=== PATIENT | female | born 1935 | race Caucasian/White ===

== ENCOUNTER 2023-08-14 13:00 | Outpatient (RCR) | payer MEDICARE, BC, SELFPAY | END 2023-09-14 14:27 | disposition home or self-care (01) | PROVIDERS: PCP Family Medicine; Visit Provider Family Medicine | DX: M54.9 Dorsalgia, unspecified (principal); R26.89 Other abnormalities of gait and mobility; R29.3 Abnormal posture; Z51.89 Encounter for other specified aftercare; R53.1 Weakness | CPT/HCPCS: 97110; 97112; 97162; 97530 ==

== ENCOUNTER 2025-02-24 16:09 | Emergency (ER) | payer MEDICARE, BC, SELFPAY ==
--- OUTSIDE RECORDS SUMMARY | 2025-02-24 16:11 | XMS_ITS | Clinical Summary ---
Author Organization [employer] [facility] Address [address] [place] [address] Care Team Providers Care Child Care Worker Name Role Phone Marilyn Teixeira MD Primary Care Prov ider Pascual Saul MD Unavailable [phone] Allergies Active Allergy Reactions Criticality Noted Date Comments Ciprofloxacin Rash,Itching 04/14/2014 Lip tingling as well Cephalexin Hives 03/29/2007 Lisinopril Cough 08/03/2016 Penicillins Hives Given Augmentin 04/2021 and developed rash. Had been given Augmentin in the past without rash Medications VITAMIN D 1,000 UNIT TAB Take 1,000 units by mouth once daily. 0 12/24/19 08 Active sennosides (Senna) 8.6 mg tablet Take 8.6 mg by mouth once daily if needed for Constipation. Active artificial tears, peg 400-propylene glycol, (Systane) 0.4-0.3 % ophthalmic dropperette Place 1-2 Drops into both eyes each time if needed for Dry Eyes. Active acetaminophen (TylenoL) 325 mg tablet Take 325-650 mg by mouth every 6 hours if needed for Headache. Max acetaminophen dose: 4000mg in 24 hrs. Active traMADoL (ULTRAM) 50 mg tabletIndications :Other chronic pain May take up to Once daily if needed for chronic severe pain. HOLD until patient calls 20 Tablet 1 06/26/20 23 Active cetirizine (ZyrTEC) 10 mg tablet Take 10 mg by mouth once daily if needed for Allergy Symptoms or Rhinitis. Active famotidine (PEPCID) 20 mg tablet Take 20 mg by mouth once daily if needed for Heartburn or GI Upset. Active predniSONE (DELTASONE) 5 mg tablet Take 5 mg by mouth once daily with a meal. 03/27/20 24 Active pen needle 32 gauge x 5/32 (disposable insulin pen needle)Indication s:Controlled type 2 diabetes mellitus without complication, with long-term current use of insulin (HC) For administering insulin at home. Remove the 2 covers on the insulin pen needle before administering insulin dose. 100 Each 4 11:10 AM CDT 05/26/20 24 Active blood-glucose meterIndications: Controlled type 2 diabetes mellitus without complication, with long-term current use of insulin (HC) Dispense meter covered by [facility] insurance. 1 Each 4 2:51 PM CDT 05/26/20 24 Active pen needle (BD Lisa 2nd Gen Pen Needle) 32 gauge x 5/32 (disposable insulin pen needle)Indication s:Uncontrolled type 2 diabetes mellitus with hyperglycemia (HC) Remove the 2 covers on the pen needle before administering medication dose. 100 Each 07/01/20 24 Active blood sugar diagnostic stripIndications: Controlled type 2 diabetes mellitus without complication, with long-term current use of insulin (HC) Test 3 times per day as needed to check cgm or for cgm back up, Reason: High A1C. Contour next strips 100 Each 07/01/20 24 Active apixaban (ELIQUIS) 5 mg tabletIndications :PAF (paroxysmal atrial fibrillation) (HC) Take 1 Tablet (5 mg) by mouth two times daily. 180 Tablet 3 07/01/20 24 Active atorvastatin (LIPITOR) 20 mg tabletIndications :Medicare annual wellness visit, subsequent Take 1 Tablet (20 mg) by mouth once daily. 90 Tablet 4 07/01/20 24 Active docusate (COLACE) 100 mg capsuleIndication s:Chronic constipation Take 1 Capsule (100 mg) by mouth 2 times daily if needed for Constipation. 180 Capsule 07/01/20 24 Active empagliflozin (JARDIANCE) 25 mg tabletIndications :Controlled type 2 diabetes mellitus without complication, with long-term current use of insulin (HC) Take 1 Tablet (25 mg) by mouth once daily. 90 Tablet 3 07/01/20 24 Active furosemide (LASIX) 20 mg tabletIndications :PAF (paroxysmal atrial fibrillation) (HC),Acute on chronic diastolic congestive heart failure (HC),Weight gain Take 0.5 Tablets (10 mg) by mouth once daily in the morning. 90 Tablet 3 07/01/20 24 Active lancetsIndication s:Controlled type 2 diabetes mellitus without complication, with long-term current use of insulin (HC) Test 3 times per day, Reason: High A1C. Use to check cgm or malfunction cgm Wait to fill until patient calls 100 Each 07/01/20 24 Active metoprolol succinate (Toprol XL) 25 mg Sustained-Release tabletIndications :PAF (paroxysmal atrial fibrillation) (HC),Acute on chronic diastolic congestive heart failure (HC),ASHD (arteriosclerotic heart disease),HTN (hypertension) Take 1 Tablet (25 mg) by mouth two times daily. 180 Tablet 3 07/01/20 24 Active nitroglycerin (NITROSTAT) 0.4 mg sublingual tabletIndications :Atherosclerosis of coronary artery of [place] heart without angina pectoris, unspecified vessel or lesion type Place 1 Tablet (0.4 mg) under the tongue every 5 minutes if needed for Chest Pain. HOLD until patient calls 25 Tablet 07/01/20 24 Active fluticasone (50 mcg per actuation) nasal solution (FLONASE)Indicati ons:Nasal congestion Inhale 1 [place] into affected nostril(s) once daily if needed for Rhinitis. Wait to fill until patient calls 16 g 2 07/29/20 Active Lantus Solostar U-100 Insulin 100 unit/mL (3 mL) penIndications:Un controlled type 2 diabetes mellitus with hyperglycemia (HC) Inject 6 units subcutaneous before bedtime. Product desired: LANTUS SOLOSTAR 15 mL 5 08/04/20 Active Active Problems Problem Noted Date Diagnosed Date Acute on chronic diastolic (congestive) heart fa ilure 11/12/2024 Type 2 diabetes mellitus wit h stage 3b chronic kidney disease, without long-term current use of insulin 11/12/2024 PAF (paroxysmal atrial fibrillation) 11/12/2024 Inflammatory arthropathy 07/01/2024 CKD (chronic kidney disease), stage III 05/22/20 DM II (diabetes mellitus, type II), controlled 0 05/22/2024 Chronic diastolic CHF (congestive heart failure) 08/08/2023 CHF (congestive heart failure) 05/06/2021 Shortness of breath 05/06/2021 Syncope 03/26/2021 Atrial fibrillation 03/24/2021 Preventative health care 05/20/2019 Overview (05/20/2019): Living well: filled out all the paperwork but her daughter did not want them to file it. States that she will speak for them. They have reviewed the paperwork with her and she knows their wishes. At this point she would like to be resuscitated if her heart should stop or need intubation. But does not want to prolong life if it is not a quality life. Signed electronically by Ramya Teixeira MD ......... 2:03 PM 05/20/2019 Gallstones 05/17/2016 Osteoporosis 05/03/2015 Overview (05/26/2019): Osteopenia: No significant change noted on DEXA 04/2019 repeat 3-5 yrs continue on Fosamax Signed electronically by Ramya Teixeira MD ......... 7:55 PM 05/26/2019 Diverticulosis 04/08/2014 Overview (04/08/2014): Sigmoid diverticuli on colonoscopy of 05/2013 Adenomatous colon polyp 06/09/2013 Overview (10/01/2023): Colonoscopy 05/2013 polyp , no follow up needed given age Flexible sigmoidoscopy 09/2023 2-TA, consider full colonoscopy Routine adult health maintenance 05/23/2013 Overview (05/23/2013): Colonoscopy 05/2013 diverticulosis no follow up Unspecified hearing loss 04/10/2011 Overview (04/10/2011): Hearing aids Coronary atherosclerosis of unspecified type of vessel, [place] or graft Overview (03/29/2007): PTCA 92 Unspecified essential hypertension Other and unspecified hyperlipidemia Esophageal reflux Rheumatoid arthritis(714.0) Osteoarthrosis, unspecified whether generalized or localized, unspecified site Herpetic gingivostomatitis Resolved Problems Problem Noted Date Diagnosed Date Resolved Date Acute cystitis 05/22/2024 07/01/2024 Hypoxia 05/14/2021 07/01/2024 SHELBY (acute kidney injury) 05/14/2021 Drug-induced skin rash 05/09/202107/01 Acute on chronic diastolic heart failure 05/07/2021 05/22/2024 Atrial fibrillation with RVR 05/06/2021 05/22/2024 Acute exacerbation of CHF (c ongestive heart failure) 03/24/2021 05/22/2024 Severe obesity (BMI 35.0-39. 9) with comorbidity 10/09/2017 06/14/2020 Renal insufficiency 05/04/2016 07/01/20 Medicare annual wellness visit, subsequent 05/03/2015 10/26/2016 Osteopenia 04/21/2013 06/22/2022 Overview (05/26/2019): No significant change noted on 04/2019 repeat 3-5 yrs SOB (shortness of breath) on exertion 10/09/2011 04/04/2021 Encounters Date Type Department Care Team Description 02/24/2025 Nurse Triage [facility] [address] [place] [place] [address] Marilyn Teixeira MD High Blood Pressure 12/02/2024 1:15 PM [employer] Office Visit [facility] [address] [place] [address] Marilyn Teixeira MD Diabetes 12/02/2024 Travel from Last 3 Months Immunizations Immunization Administration Dates Next Due AMB INFLUENZA IIV3 (AGE 65+ YRS) PF (Flu Clinic Only) 07/23/2018 AMB Influenza, IIV3 (Age >=3 years)(Flu Clinic Only) 08/13/2013,08/30/2010,08/12/2008 Amb Influenza, Inact (High-d ose) (Flu Clinic Only) 07/23/2015 Amb Influenza, Inactivated A IIV4 (Age 65+ Years) Preserv Free 07/23/2020 COVID-19 vaccine (Sidestage 30mcg/0.3mL) PF, MDV 09/07/2021,01/06/2021,12/16/2020 Influenza A (H1N1), Inactiva veronica (Age >=3 Years) 11/02/2009 Influenza, High-dose Inactivated 07/30/2024,07/22,07/07/2014 Influenza, IIV3 (Age >=3 years) 08/28/20 12,08/01/2011,07/02/2009,09/16 Influenza, Inactivated AIIV4 (Age 65+ Years) Preserv Free 07/10/2023,06/22/2022,09/07/2021 Influenza, Inactivated IIV3 (Age 65+ Years) Preserv Free 08/26/2019 Pneumococcal Poly,23-Valent (Pneumovax) 08/26/2019,08/24/2000 Pneumococcal conj 13-Valent (Prevnar 13) 12/20/2015 RSV, Recombinant ADJ Reconst ituted (Arexvy 120MCG/0.5mL) 08/29/2023 Td (Age >=7 Years) 02/15/1999 Td, Preservative Free (age >= 7 Years) 9 Tdap 04/16/2012 Tdap, Unspecified 10/03/2017 Zoster (Shingrix-RZV, recombinant) 06/27/2023, Zoster (Zostavax-ZVL, live) 06/12/2012 Family History Medical History Relation Name Comments Heart Disease Father Hypertension Father Other Father cancer of face, then lung Heart Disease Mother Mi at age 57 a nd 64 Cancer-colon Sister 1 Cancer-breast Sister 2 Other Sister 2 aneurism Other Sister 3 down's synd Cancer-ovarian No Family History Relation Name Status Comments Brother Alive Father (Age 77) Mother (Age 64) [place] Sister 1 Alive Sister 2 Sister 3 Sister 4 Alive Social History Tobacco Use Types Packs/Day Years Used Date Smoking Tobacco: Never Passive Smoke Exposure: Never Smokeless Tobacco: Never Tobacco Cessation:Counseling Given: Not Answered Alcohol Use Standard Drinks/Week Comments No 0 (1 standard drink = 0.6 oz pur e alcohol) PHQ-2 Answer Date Recorded PHQ-2 TOTAL SCORE 0 07/01/2024 Social Connections Answer Date Recorded Do you often feel lonely or isolated from those around you? 0 05/22/2024 Financial Resource Strain Answer Date R ecorded Difficulty of Paying Living Expenses 3 06/26/2023 Difficulty of Paying Living Expenses Not on file 06/26/2023 Food Insecurity Answer Date Recorded Do you worry your food will run out before you are able to buy more? 1 05/22/2024 Transportation Needs Answer Date Record ed Does lack of transportation keep you from medica l appointments? 1 05/22/2024 Does lack of transportation keep you from work, meetings or getting things that you need? 1 05/22/2024 Housing Stability Answer Date Recorded What is your housing situation today? 1 05/22/2024 Interpersonal Safety Answer Date Record ed Are you being hit, kicked, p ushed or yelled at (see row info)? No 05/22/2024 Interpersonal Safety Abuse 12 - 18 Not on file 05/22/2024 Interpersonal Safety Ambulatory Vulnerability No t on file 05/22/2024 Utilities Answer Date Recorded Do you have trouble paying f or utilities (for example, heat, electricity, water, phone)? 1 05/22/2024 Comments No Sex and Gender Information Value Date Recorded Sex Assigned at Not on file Legal Sex Female 6:09 AM [employer] Gender Identity Not on file Sexual Orientation Not on file Obstetrics History Last Filed Vital Signs Vital Sign Reading Time Taken Comments Blood Pressure 141/84 12/02/2024 12:54 PM [employer] Pulse 87 12/02/2024 12:54 PM [employer] Temperature 36.6 C (97.8 F) 08/24/2024 11:25 AM [employer] Respiratory Rate 18 08/24/2024 11:25 AM [employer]ER Oxygen Saturation 97% 12/02/2024 12:54 PM [employer]ER Inhaled Oxygen Concentration - - Weight 68.5 kg (151 lb) 12/02/2024 12:54 PM [employer] Height 157.5 cm (5' 2) 07/23/2024 9:53 AM CDT Body Mass Index 27.62 07/23/2024 9:53 AM CDT Plan of Treatment Upcoming Encounters Date Type Department Care Team (Late st Contact Info) Description 03/03/2025 2:55 PM CDT Office Visit [facility] [address] [place] [address] Marilyn Teixeira MD [address] [facility] [address] 06/02/2025 2:30 PM CDT Cardiac Device Check [facility] [address] [place] [phone] Health Maintenance Due Date Last Done Comments COVID-19 vaccine series ( season) 2025 07/30/2024, 08/29/2023, 07/27/2022, Additional history exists Medicare Wellness for age 65+ 07/02/2025, 06/26/2023 (Verified in Care Everywhere or Patient Record), 06/22/2022, Additional history exists Depression screening for age 12+ 07/03/2025 07/03/2024, 07/01/2024, 06/26/2023, Additional history exists BMI (ht and wt on same day) for age 18+ 07/23/2025 07/23/2024, 07/01/2024, 07/04/2023, Additional history exists Tetanus booster 10/03/2027 10/03/2017, 03/23, 03/31/2009, Additional history exists Tdap Completed 10/03/2017, 04/16/2012 DEXA/DXA scan for age 65+ Completed 2018, 05/07/2017, 05/04/2015, Additional history exists Pneumococcal series for age 50+ Completed 08/26/2019, 12/20/2015, 08/24/2000, Additional history exists Zoster (shingles) series for age 50+ Completed 06/27/2023, 04/10/2023, 06/12/2012 RSV vaccine for adults or Completed 08/29/2023 Influenza Vaccine Completed 07/30/2024, , 06/22/2022, Additional history exists Procedures Procedure Name Priority Date/Time Associated Diagnosis Comments HEMOGLOBIN A1C MONITORING (POCT) Routine 12/02/2024 12:03 PM [employer] Controlled type 2 diabetes mellitus without complication, with long-term current use of insulin (HC) XR DXA BONE DENSITY 2 SITES AXIAL Routine 05/20/2019 1:53 PM CDT Osteoporosis, unspecified osteoporosis type, unspecified pathological fracture presence from Last 3 Months or Most Recently Relevant to Health Maintenance Results * (ABNORMAL) HEMOGLOBIN A1C MONITORING (POCT) (12/02/2024 12:03 PM [employer]) POC HEMOGLOBIN A1C 7.5(H) <6.0 % OF TOTAL HGB [facility] Comment: Any point of care results exhibiting inconsistency with the patient's clinical status should be repeated using a different testing method. Blood BLOOD SPECIMEN / Unknown 12/02/2024 12:03 PM [employer] 12/02/2024 12:03 PM [employer] Marilyn Teixeira MD CHEMISTRY Fi nal Result [facility] [address] [place] [address], [facility] [address] [place] [address] * (ABNORMAL) XR DXA BONE DENSITY 2 SITES AXIAL (05/20/2019 1:53 PM CDT) Anatomical Region Laterality Modality Spine, HIPS, HIPL, HIPR Other Narrative 05/26/2019 1:19 PM CDT Please see scanned document for results of this study. Marilyn Teixeira MD DEXA Fi nal Result from Last 3 Months or Most Recently Relevant to Health Maintenance Insurance [id number] [place] [address] MEDICARE [place] ONLY MEDICARE PART B HB ONLY [facility] MEDICARE PART A HB ONLY [facility] MEDICARE PPS Advance Directives * Full Code (Latest Code Status on File) Date Activated Date Inactivated Comments 05/22/2024 6:35 AM 05/26/2024 8:07 PM Question Answer Comments Code Status Discussion: Reviewed Preferences * Full Code Date Activated Date Inactivated Comments 05/06/2021 7:04 PM 05/15/2021 4:36 PM Question Answer Comments Code Status Discussion: Discussed * Full Code Date Activated Date Inactivated Comments 04/28/2021 11:01 AM 04/28/2021 6:22 PM Question Answer Comments Code Status Discussion: Not Discussed * Full Code Date Activated Date Inactivated Comments 03/24/2021 4:12 PM 03/29/2021 4:59 PM Question Answer Comments Code Status Discussion: Discussed Care Teams Child Care Worker Relationship Specialty Start Date End Date Marilyn Teixeira MD PCP - General 06/22/09 Pascual Saul MD [address] [address] [place] [address] Cardiology Cardiovascular Disease 10/26/16
--- OUTSIDE RECORDS SUMMARY | 2025-02-24 16:11 | XMS_ITS | Continuity of Care Document ---
Author Organization [facility] Address [address] [place] [address] Phone Care Team Providers Care National Accounts Sales Name Role Phone Nicolas Martinez DO Unavailable Unavailable Allergies, Adverse Reactions, Alerts Substance Reaction Status Criticality ciprofloxacin Active No Information Penicillins Active No Information Medications Medication Instructions Dosage Effective Dates (start - stop) Status Comments PREDNISONE 5 MG TABLET TAKE 1 TABLET BY MOUTH EVERY DAY - Active Flonase Allergy Relief 50 mcg/actuation nasal spray,suspension inhale 2 spray by intranasal route every day in each nostril as needed 100 MCG - Active Colace 100 mg capsule take 1 capsule by oral route every day at bedtime as needed as needed 100 MG - Active Lantus Solostar U-100 Insulin 100 unit/mL (3 mL) subcutaneous pen inject by subcutaneous route as per insulin protocol 0.00 - Active Jardiance 25 mg tablet take 1 tablet by oral route every day in the morning 25 MG - Active metoprolol tartrate 25 mg tablet take 1 tablet by oral route 2 times every day 25 MG - Active Eliquis 5 mg tablet take 1 tablet by oral route 2 times every day 5 MG - Active Lasix 20 mg tablet take 1 tablet by oral route every day 20 MG - Active Zyrtec 10 mg capsule take 1 Capsule by Oral route every day 1 Capsule - Active LIPITOR (unknown strength) take 1 tablet by oral route every day Not Available - Active Nitrostat 0.[address] 1 tablet (0.4MG) by sublingual route at the 1st sign of attack; may repeat every 5 min until relief; if pain persists after 3 tablets in 15 min, prompt medical attention is recommended 0.4 MG - Active PREDNISONE 5 MG TABLET TAKE 1 TABLET BY MOUTH EVERY DAY - No Longer Active Procedures Procedure Date Office/Outpatient Visit, Est Complex e/m visit add on Office/Outpatient Visit, Est Complex e/m visit add on Routine Venipuncture Specimen Handling Assay Of Ck (Cpk) Office/Outpatient Visit, Est Routine Venipuncture Rbc Sed Rate, Automated Assay Of Serum Albumin Assay Of Creatinine Transferase (Ast) (Sgot) Alanine Amino (Alt) (Sgpt) CReactive Protein CCP Antibody Rheumatoid Factor, IGM Rheumatoid Factor, IGG, IGA Complete Cbc WAuto Diff Wbc Office/Outpatient Visit, Est Office/Outpatient Visit, Est Office/Outpatient Visit, Est Drain/Inject, Joint/Bursa, Major 2019 Betamethasone Acet And Sod Phosp 2019 Office/Outpatient Visit, Est Office/Outpatient Visit, Est Office/Outpatient Visit, Est Office/Outpatient Visit, Est Office/Outpatient Visit, Est Office/Outpatient Visit, Est Office/Outpatient Visit, Est Office/Outpatient Visit, Est Routine Venipuncture CReactive Protein Complete Cbc WAuto Diff Wbc Rbc Sed Rate, Nonautomated Office/Outpatient Visit, Est Advance Directives Directive Yes / No Effective Date File Name No Information Encounters Encounter Description Practice Location Reason(s) For Visit Diagnoses Date Provider Providers Copied on Encounter [facility] , [address], [place], [address], [place] tel:[phone] [facility] No Information 5 Juan Valenzuela. [facility] [address], [place], [address], [place]. tel:[phone] [facility] , [address], [place], [address], [place] tel:[phone] [facility] No Information 5 Juan Valenzuela. [facility] [address], [place], [address], [place]. tel:[phone] Office/Outpa tient Visit, Est [facility] , [address], [place], [address], [place] tel:[phone] [facility] , Inflammatory polyarthropa thyOther oysterman (current) drug therapyPrima ry generalized (osteo)arthr itisEdemaCos tochondritis 4 Juan Valenzuela. [facility] [address], [place], [address], [place]. tel:[phone] Referring Provider: Nicolas Crowley, [facility] [address], [place], [address]. tel:[phone] Office/Outpa tient Visit, Est [facility] , [address], [place], [address], [place] tel:[phone] [facility] , Inflammatory Polyarthropa thy (chief complaint)Mo nitor Chronic High Risk Meds (chief complaint) Inflammatory polyarthropa thyPrimary generalized (osteo)arthr itisOther oysterman (current) drug therapy 4 Juan Valenzuela. [facility] [address], [place], [address], [place]. tel:[phone] Referring Provider: Nicolas Crowley, [facility] [address], [place], [address]. tel:[phone] Office/Outpa tient Visit, Est [facility] , [address], [place], [address], [place] tel:[phone] [facility] , Inflammatory Polyarthropa thy (chief complaint)Mo nitor Chronic High Risk Meds (chief complaint) Inflammatory polyarthropa thyPrimary generalized (osteo)arthr itisOther oysterman (current) drug therapy 4 Juan Valenzuela. [facility] [address], [place], [address], [place]. tel:[phone] Referring Provider: Nicolas Crowley, [facility] [address], [place], [address]. tel:[phone] Office/Outpa tient Visit, Est [facility] , [address], [place], [address], [place] tel:[phone] [facility] , Inflammatory Polyarthropa thy (chief complaint)Mo nitor Chronic High Risk Meds (chief complaint) Inflammatory polyarthropa thyPrimary generalized (osteo)arthr itisOther half-way (current) drug therapy 3 Juan Valenzuela. [facility] [address], [place], [address], [place]. tel:[phone] Referring Provider: Nicolas Crowley, [facility] [address], [place], [address]. 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 [facility] [address], [place], [address], [place]. tel:[phone] Referring Provider: Nicolas Crowley, [facility] [address], [place], [address]. tel:[phone] Office/Outpa tient Visit, Est [facility] , [address], [place], [address], [place] tel:[phone] [facility] , Inflammatory Polyarthropa thy (chief complaint)Mo nitor Chronic High Risk Meds (chief complaint) Inflammatory polyarthropa thyPrimary generalized (osteo)arthr itisPain in right kneePain in left kneeTrigger finger, left ring fingerOther oysterman (current) drug therapy 0 1 Juan Valenzuela. [facility] [address], [place], [address], [place]. tel:[phone] Referring Provider: Nicolas Crowley, [facility] [address], [place], [address]. tel:[phone] Office/Outpa tient Visit, Est [facility] , [address], [place], [address], [place] tel:[phone] [facility] , Inflammatory Polyarthropa thy (chief complaint)Mo nitor Chronic High Risk Meds (chief complaint) Inflammatory polyarthropa thyPrimary generalized (osteo)arthr itisOther half-way (current) drug therapyTrigg er finger, left ring fingerPain in left kneePain in right knee 0 Juan Valenzuela. [facility] [address], [place], [address], [place]. tel:[phone] Referring Provider: Nicolas Crowley, [facility] [address], [place], [address]. tel:[phone] Office/Outpa tient Visit, Est [facility] , [address], [place], [address], [place] tel:[phone] [facility] , Inflammatory Polyarthropa thy (chief complaint)Mo nitor Chronic High Risk Meds (chief complaint) Inflammatory polyarthropa thyPrimary generalized (osteo)arthr itisOther half-way (current) drug therapy 9 Juan Valenzuela. [facility] [address], [place], [address], [place]. tel:[phone] Referring Provider: Nicolas Crowley, [facility] [address], [place], [address]. tel:[phone] Office/Outpa tient Visit, Est [facility] , [address], [place], [address], [place] tel:[phone] [facility] , Inflammatory Polyarthropa thy (chief complaint)Mo nitor Chronic High Risk Meds (chief complaint) Inflammatory polyarthropa thyTrigger finger, left index fingerOther half-way (current) drug therapyPrima ry generalized (osteo)arthr itis 8 Juan Valenzuela. [facility] [address], [place], [address], [place]. tel:[phone] Referring Provider: Nicolas Crowley, [facility] [address], [place], [address]. tel:[phone] Office/Outpa tient Visit, Est [facility] , [address], [place], [address], [place] tel:[phone] [facility] , Inflammatory Polyarthropa thy (chief complaint)Mo nitor Chronic High Risk Meds (chief complaint) Inflammatory polyarthropa thyOther half-way (current) drug therapyTrigg er finger, left index finger All-0 7 7 Juan Valenzuela. [facility] [address], [place], [address], [place]. tel:[phone] Referring Provider: Nicolas Crowley, [facility] [address], [place], [address]. tel:[phone] Office/Outpa tient Visit, Est [facility] , [address], [place], [address], [place] tel:[phone] [facility] , Inflammatory Polyarthropa thy (chief complaint)Mo nitor Chronic High Risk Meds (chief complaint) Other oysterman (current) drug therapyInfla mmatory polyarthropa thy All-0 3-201 6 Juan Valenzuela. [facility] [address], [place], [address], [place]. tel:[phone] Referring Provider: Nicolas Crowley, [facility] [address], [place], [address]. tel:[phone] Office/Outpa tient Visit, Est [facility] , [address], [place], [address], [place] tel:[phone] [facility] , Inflammatory Polyarthropa thy (chief complaint)Mo nitor Chronic High Risk Meds (chief complaint)Ba ck pain (chief complaint) Unspecified inflammatory polyarthropa thyTherapeut ic Drug MonitoringLo w back pain All-0 4-201 5 Juan Valenzuela. [facility] [address], [place], [address], [place]. tel:[phone] Referring Provider: Nicolas Crowley, [facility] [address], [place], [address]. tel:[phone] Office/Outpa tient Visit, Est [facility] , [address], [place], [address], [place] tel:[phone] [facility] , Inflammatory Polyarthropa thy (chief complaint)Mo nitor chronic high risk medications (chief complaint) Unspecified inflammatory polyarthropa thyTherapeut ic Drug MonitoringPe s anserinus tendinitis or bursitis All-0 3-201 4 Juan Valenzuela. [facility] [address], [place], [address], [place]. tel:[phone] Referring Provider: Nicolas Crowley, [facility] [address], [place], [address]. tel:[phone] Office/Outpa tient Visit, Est [facility] , [address], [place], [address], [place] tel:[phone] [facility] , Inflammatory Polyarthropa thy (chief complaint) Unspecified inflammatory polyarthropa thyTherapeut ic Drug MonitoringSh ortness of Breath All-0 4-201 3 Juan Valenzuela. [facility] [address], [place], [address], [place]. tel:[phone] Referring Provider: Nicolas Crowley, [facility] [address], [place], [address]. tel:[phone] Office/Outpa tient Visit, Est [facility] , [address], [place], [address], [place] tel:[phone] [facility] , Inflammatory Polyarthropa thy (chief complaint) Unspecified inflammatory polyarthropa thyTherapeut ic Drug MonitoringTr igger finger (acquired) 2 Juan Valenzuela. [facility] [address], [place], [address], [place]. tel:[phone] Referring Provider: Nicolas Crowley, [facility] [address], [place], [address]. tel:[phone] Family History Family Member Type Diagnosis Age At Onset Paternal grandmother Problem (finding) rheumatoid arth ritis Immunizations Vaccine Date Status Comments COVID-19 Pfizer administered Source: [facility] Unspecified COVID-19 Pfizer administered Source: [facility] Unspecified COVID-19 Pfizer administered Source: [facility] Unspecified Payers Payer name Insurance type Covered green party ID Authoriza tistacy(s) Medicare MB [id number] [facility] [id number] Social History Type Description Quantity Date Captured Comments Sex Female Smoking Status No Information Chief Complaint And Reason For Visit No Information Reason For Referral Reason For Referral No Information History Of Present Illness Encounter Date Complaint History Of Prese nt Illness Inflammatory Polyarthropathy Monitor Chronic High Risk Meds Inflammatory Polyarthropathy Monitor Chronic High Risk Meds Inflammatory Polyarthropathy Monitor Chronic High Risk Meds Inflammatory Polyarthropathy Monitor Chronic High Risk Meds Inflammatory Polyarthropathy Monitor Chronic High Risk Meds Inflammatory Polyarthropathy Monitor Chronic High Risk Meds Inflammatory Polyarthropathy Monitor Chronic High Risk Meds Inflammatory Polyarthropathy Monitor Chronic High Risk Meds Inflammatory Polyarthropathy Monitor Chronic High Risk Meds Inflammatory Polyarthropathy Monitor Chronic High Risk Meds Inflammatory Polyarthropathy Monitor Chronic High Risk Meds Back pain Inflammatory Polyart hropathy (comments) This patient has a history of a poorly defined inflammatory arthritis and continues to do well with Plaquenil.No newly inflamed or swollen joints to report. She does have a physical in a few weeks and will be undergoing routine testing.No additional joint complaints. The knee pain improved with Voltaren gel. Minimal morning stiffness. Monitor Chronic High Risk Meds (comments) She is up-to-date with Plaquenil toxicity screening. Back pain (comments) Her primary issue has been mechanical back pain. She had an epidural which did not help significantly. She plans on going back to the spine clinic. She has degenerative disc disease. Functional Status Date Functional Assessmen t No Information Instructions Date Instruction Additional Infor mation No Information Assessments Type Assessment Date No Information Patient Care Teams Name Effective Dates (start - stop) Status Members No Information
[2025-02-24 16:23] VITALS: BP 172/85; PULSE 86; RESP 16; TEMP 36.7; O2SAT 97; BMI 27.3
[2025-02-24 16:30] VITALS: BP 158/81
--- NOTE | 2025-02-24 17:19 | ED.GENADULT ---
HPI - General Adult General Chief complaint: Hypertension Stated complaint: high blood pressure Time Seen by Provider: 02/24/25 16:12 History of Present Illness HPI narrative: This 89-year-old female comes in with family members with concern about her blood pressure. She had a reading at her assisted living that was a systolic value of 198 so she was encouraged to call her doctor. She did call the doctor's office who in turn called 911 and had an ambulance come out to visit her. She was instructed to come into the emergency department right away. The patient states that she feels normal except for a mild headache. She does not have any neurologic deficits. She does take metoprolol succinate 25 mg twice a day. This is not a new medicine for her. Related Data Home Medications ?Medication ?Instructions ?Recorded ?Confirmed apixaban 5 mg tablet (Eliquis) 5 mg PO BID 02/24/25 02/24/25 atorvastatin 20 mg tablet 20 mg PO DAILY 02/24/25 02/24/25 cetirizine 10 mg tablet (Zyrtec) 10 mg PO DAILY PRN 02/24/25 02/24/25 empagliflozin 25 mg tablet 25 mg PO DAILY 02/24/25 02/24/25 (Jardiance) famotidine 20 mg tablet (Pepcid) 20 mg PO DAILY 02/24/25 02/24/25 furosemide 20 mg tablet mg PO 02/24/25 insulin glargine 100 unit/mL (3 8 unit subcut QPM 02/24/25 02/24/25 mL) subcutaneous pen (Lantus Solostar U-100 Insulin) metoprolol succinate 25 mg 25 mg PO BID 02/24/25 02/24/25 tablet,extended release 24 hr nitroglycerin 0.4 mg sublingual mg sublingual 02/24/25 tablet prednisone 5 mg tablet 5 mg PO DAILY 02/24/25 02/24/25 tramadol 50 mg tablet 50 mg PO Q6-8H PRN 02/24/25 02/24/25 Allergies Allergy/AdvReac Type Severity Reaction Status Date / Time Penicillins Allergy Intermediate Hives Verified 02/24/25 16:16 Review of Systems Status of ROS: Reports: 10 or more systems reviewed and unremarkable except as noted in History and below Narrative: Constitutional: No fevers, no weight gain or loss. Eyes: No discharge. No vision changes. HENT: No congestion, no sore throat, no ear pain. Cardiovascular: No chest pain, no palpitations. Respiratory: No shortness of breath, no wheezes, no cough. Gastrointestinal: No abdominal pain, no vomiting, no diarrhea. Genitourinary: No dysuria, no hematuria. Musculoskeletal: Normal range of motion. Skin: No rashes, no pruritis. Neurological: No dizziness, weakness, sensory change, speech change. Endo/Heme/Allergies: No bruising or bleeding. No polydipsia. Pysch: no suicidality, no anxiety, no insomnia. All other systems reviewed and are negative. Exam Narrative: Exam Narrative: Constitutional: Well-developed, well-nourished, no acute distress. HEENT: Normocephalic, atraumatic. Neck: Normal range of motion. Nontender. Supple. Heart: Regular. No murmurs. Normal rate. Intact distal pulses. Lungs: Clear to auscultation. No chest discomfort. No wheezes, rhonchi, or rales. Abdomen: Normal bowel sounds. Nontender. No rebound tenderness. Genitalia: Deferred. Back: No midline tenderness. Normal range of motion. Extremities: Normal range of motion. No injury. Skin: Intact. No rash. Warm. No erythema or pallor. Neurologic: No altered sensation. No weakness. Alert and oriented. Psychiatric: No suicidality. No anxiety or depression. No insomnia. Nursing notes and vitals signs are reviewed. Const: Vital Signs, click to edit/add: Vital Signs - 24 hr 02/24/25 16:23 02/24/25 16:30 Temperature 98.1 F Pulse Rate [Pulse Oximeter] 86 Respiratory Rate 16 Blood Pressure [Ri ght Upper Arm] 172/85 H 158/81 H Pulse Oximetry 97 Oxygen Delivery Me thod Room Air Course Vital Signs Vital signs: Initial Vital Signs Temperature 98.1 F 02/24/25 16:23 Temperature Source Temporal Artery Scan 02/24/25 16:23 Pulse Rate 86 02/24/25 16:23 Respiratory Rate 16 02/24/25 16:23 Blood Pressure 172/85 H 02/24/25 16:23 Blood Pressure Mean 114 H 02/24/25 16:23 Pulse Oximetry 97 02/24/25 16:23 Oxygen Delivery Method Room Air 02/24/25 16:23 Vital Signs Temperature 98.1 F 02/24/25 16:23 Pulse Rate 86 02/24/25 16:23 Respiratory Rate 16 02/24/25 16:23 Blood Pressure 172/85 H 02/24/25 16:23 Pulse Oximetry 97 02/24/25 16:23 Oxygen Delivery Method Room Air 02/24/25 16:23 Temperature 98.1 F 02/24/25 16:23 Pulse Rate 86 02/24/25 16:23 Respiratory Rate 16 02/24/25 16:23 Blood Pressure 158/81 H 02/24/25 16:30 Pulse Oximetry 97 02/24/25 16:23 Oxygen Delivery Method Room Air 02/24/25 16:23 Medical Decision Making MDM Narrative Medical decision making narrative: This patient comes in with concern about her blood pressure. She had a reading at home of a systolic value of 198. Her initial pressure here was 172 and repeat pressure 7 minutes later was a systolic value of 158. The patient's neurologic exam is completely normal. I did explain criteria for management of blood pressure and indicated the importance of getting several readings over time and how 0 this is a matter that is managed by her primary physician. She does have an appointment with her primary physician next week. I did offer lab and imaging studies but in a process of shared decision making these were declined. Discharge Plan Discharge Clinical Impression: Elevated blood pressure reading Patient Disposition: Home w/ Parent or Adult Condition: Stable Additional Instructions: Continue current medications. Check blood pressure frequently and record results for follow-up appointment with primary physician for ongoing management. Return if worsening. Prescriptions: No Action atorvastatin 20 mg tablet 20 mg PO DAILY prednisone 5 mg tablet 5 mg PO DAILY nitroglycerin 0.4 mg tablet, sublingual sublingual furosemide 20 mg tablet PO metoprolol succinate 25 mg tablet extended release 24 hr 25 mg PO BID insulin glargine [Lantus Solostar U-100 Insulin] 100 unit/mL (3 mL) insulin pen 8 unit subcut QPM Eliquis 5 mg tablet 5 mg PO BID Jardiance 25 mg tablet 25 mg PO DAILY tramadol 50 mg tablet 50 mg PO Q6-8H PRN famotidine [Pepcid] 20 mg tablet 20 mg PO DAILY cetirizine [Zyrtec] 10 mg tablet 10 mg PO DAILY PRN Follow Up/Referrals: Marilyn Teixeira MD [Primary Care Provider] - Stand Alone Forms: MyHealth Info Instructions
--- OUTSIDE RECORDS SUMMARY | 2025-02-24 17:32 | XMS_ITS | Continuity of Care Document ---
Author Organization [facility] Address [address] [place] [address] Phone Care Team Providers Care Director Of Hotel Operations Name Role Phone Nicolas Martinez DO Unavailable [...] [facility] , [address], [place], [address], [place] tel:[phone] [facility] No Information 5 Juan Valenzuela. [facility] [address], [place], [address], [place]. tel:[phone] [facility] , [address], [place], [address], [place] tel:[phone] [facility] No Information 5 Juan Valenzuela. [facility] [address], [place], [address], [place]. tel:[phone] Office/Outpa tient Visit, Est [facility] , [address], [place], [address], [place] tel:[phone] [facility] , Inflammatory polyarthropa thyOther termite control service representative (current) drug therapyPrima ry generalized (osteo)arthr itisEdemaCos tochondritis 4 Juan Valenzuela. [facility] [address], [place], [address], [place]. tel:[phone] Referring Provider: Nicolas Crowley, [facility] [address], [place], [address]. tel:[phone] Office/Outpa tient Visit, Est [facility] , [address], [place], [address], [place] tel:[phone] [facility] , Inflammatory Polyarthropa thy (chief complaint)Mo nitor Chronic High Risk Meds (chief complaint) Inflammatory polyarthropa thyPrimary generalized (osteo)arthr itisOther termite control service representative (current) drug therapy 4 Juan Valenzuela. [facility] [address], [place], [address], [place]. tel:[phone] Referring Provider: Nicolas Crowley, [facility] [address], [place], [address]. tel:[phone] Office/Outpa tient Visit, Est [facility] , [address], [place], [address], [place] tel:[phone] [facility] , Inflammatory Polyarthropa thy (chief complaint)Mo nitor Chronic High Risk Meds (chief complaint) Inflammatory polyarthropa thyPrimary generalized (osteo)arthr itisOther termite control service representative (current) drug therapy 4 Juan Valenzuela. [facility] [address], [place], [address], [place]. tel:[phone] Referring Provider: Nicolas Crowley, [facility] [address], [place], [address]. tel:[phone] Office/Outpa tient Visit, Est [facility] , [address], [place], [address], [place] tel:[phone] [facility] , Inflammatory Polyarthropa thy (chief complaint)Mo nitor Chronic High Risk Meds (chief complaint) Inflammatory polyarthropa thyPrimary generalized (osteo)arthr itisOther usp (current) drug therapy 3 Juan Valenzuela. [facility] [address], [place], [address], [place]. tel:[phone] Referring Provider: Nicolas Crowley, [facility] [address], [place], [address]. tel:[phone] Office/Outpa tient Visit, Est [facility] , [address], [place], [address], [place] tel:[phone] [facility] , Inflammatory Polyarthropa thy (chief complaint)Mo nitor Chronic High Risk Meds (chief complaint) Inflammatory polyarthropa thyPrimary generalized (osteo)arthr itisOther usp (current) drug therapy 2 Juan Valenzuela. [facility] [address], [place], [address], [place]. tel:[phone] Referring Provider: Nicolas Crowley, [facility] [address], [place], [address]. tel:[phone] Office/Outpa tient Visit, Est [facility] , [address], [place], [address], [place] tel:[phone] [facility] , Inflammatory Polyarthropa thy (chief complaint)Mo nitor Chronic High Risk Meds (chief complaint) Inflammatory polyarthropa thyPrimary generalized (osteo)arthr itisPain in right kneePain in left kneeTrigger finger, left ring fingerOther termite control service representative (current) drug therapy 0 1 Juan Valenzuela. [facility] [address], [place], [address], [place]. tel:[phone] Referring Provider: Nicolas Crowley, [facility] [address], [place], [address]. tel:[phone] Office/Outpa tient Visit, Est [facility] , [address], [place], [address], [place] tel:[phone] [facility] , Inflammatory Polyarthropa thy (chief complaint)Mo nitor Chronic High Risk Meds (chief complaint) Inflammatory polyarthropa thyPrimary generalized (osteo)arthr itisOther usp (current) drug therapyTrigg er finger, left ring fingerPain in left kneePain in right knee 0 Juan Valenzuela. [facility] [address], [place], [address], [place]. tel:[phone] Referring Provider: Nicolas Crowley, [facility] [address], [place], [address]. tel:[phone] Office/Outpa tient Visit, Est [facility] , [address], [place], [address], [place] tel:[phone] [facility] , Inflammatory Polyarthropa thy (chief complaint)Mo nitor Chronic High Risk Meds (chief complaint) Inflammatory polyarthropa thyPrimary generalized (osteo)arthr itisOther usp (current) drug therapy 9 Juan Valenzuela. [facility] [address], [place], [address], [place]. tel:[phone] Referring Provider: Nicolas Crowley, [facility] [address], [place], [address]. tel:[phone] Office/Outpa tient Visit, Est [facility] , [address], [place], [address], [place] tel:[phone] [facility] , Inflammatory Polyarthropa thy (chief complaint)Mo nitor Chronic High Risk Meds (chief complaint) Inflammatory polyarthropa thyTrigger finger, left index fingerOther usp (current) drug therapyPrima ry generalized (osteo)arthr itis 8 Juan Valenzuela. [facility] [address], [place], [address], [place]. tel:[phone] Referring Provider: Nicolas Crowley, [facility] [address], [place], [address]. tel:[phone] Office/Outpa tient Visit, Est [facility] , [address], [place], [address], [place] tel:[phone] [facility] , Inflammatory Polyarthropa thy (chief complaint)Mo nitor Chronic High Risk Meds (chief complaint) Inflammatory polyarthropa thyOther usp (current) drug therapyTrigg er finger, left index finger All-0 7 7 Juan Valenzuela. [facility] [address], [place], [address], [place]. tel:[phone] Referring Provider: Nicolas Crowley, [facility] [address], [place], [address]. tel:[phone] Office/Outpa tient Visit, Est [facility] , [address], [place], [address], [place] tel:[phone] [facility] , Inflammatory Polyarthropa thy (chief complaint)Mo nitor Chronic High Risk Meds (chief complaint) Other termite control service representative (current) drug therapyInfla mmatory polyarthropa thy All-0 3-201 6 Juan Valenzuela. [facility] [address], [place], [address], [place]. tel:[phone] Referring Provider: Nicolas Crowley, [facility] [address], [place], [address]. tel:[phone] Office/Outpa tient Visit, Est [facility] , [address], [place], [address], [place] tel:[phone] [facility] , Inflammatory Polyarthropa thy (chief complaint)Mo nitor Chronic High Risk Meds (chief complaint)Ba ck pain (chief complaint) Unspecified inflammatory polyarthropa thyTherapeut ic Drug MonitoringLo w back pain All-0 4-201 5 Juan Valenzuela. [facility] [address], [place], [address], [place]. tel:[phone] Referring Provider: Nicolas Crowley, [facility] [address], [place], [address]. tel:[phone] Office/Outpa tient Visit, Est [facility] , [address], [place], [address], [place] tel:[phone] [facility] , Inflammatory Polyarthropa thy (chief complaint)Mo nitor chronic high risk medications (chief complaint) Unspecified inflammatory polyarthropa thyTherapeut ic Drug MonitoringPe s anserinus tendinitis or bursitis All-0 3-201 4 Juan Valenzuela. [facility] [address], [place], [address], [place]. tel:[phone] Referring Provider: Nicolas Crowley, [facility] [address], [place], [address]. tel:[phone] Office/Outpa tient Visit, Est [facility] , [address], [place], [address], [place] tel:[phone] [facility] , Inflammatory Polyarthropa thy (chief complaint) Unspecified inflammatory polyarthropa thyTherapeut ic Drug MonitoringSh ortness of Breath All-0 4-201 3 Juan Valenzuela. [facility] [address], [place], [address], [place]. tel:[phone] Referring Provider: Nicolas Crowley, [facility] [address], [place], [address]. tel:[phone] Office/Outpa tient Visit, Est [facility] , [address], [place], [address], [place] tel:[phone] [facility] , Inflammatory Polyarthropa thy (chief complaint) Unspecified inflammatory polyarthropa thyTherapeut ic Drug MonitoringTr igger finger (acquired) 2 Juan Valenzuela. [facility] [address], [place], [address], [place]. tel:[phone] Referring Provider: Nicolas Crowley, [facility] [address], [place], [address]. tel:[phone] Family History Family Member Type Diagnosis Age At Onset Paternal grandmother Problem (finding) rheumatoid arth ritis Immunizations Vaccine Date Status Comments COVID-19 Pfizer administered Source: Sour ce Unspecified COVID-19 Pfizer administered Source: Sour ce Unspecified COVID-19 Pfizer administered Source: Sour ce Unspecified Payers Payer name Insurance type Covered democrat ID Authoriza tistacy(s) Medicare MB [id number] [facility] [id number] Social History Type Description Quantity Date Captured [...]
--- OUTSIDE RECORDS SUMMARY | 2025-02-24 17:32 | XMS_ITS | Clinical Summary ---
Author Organization [facility] Address [address] [place] [address] Care Team Providers Care Special Events Fundraiser Name Role Phone Marilyn Teixeira MD Primary Care Prov ider Pascual Saul MD Unavailable [phone] Allergies Active Allergy Reactions Criticality Noted Date [...] of insulin (HC) Dispense meter covered by [facility] insurance. 1 Each 4 2:51 PM CDT [...] sublingual tabletIndications :Atherosclerosis of coronary artery of [place] heart without angina pectoris, unspecified vessel or lesion type Place 1 Tablet (0.4 mg) under the tongue every 5 minutes if needed for Chest Pain. HOLD until patient calls 25 Tablet 07/01/20 24 Active fluticasone (50 mcg per actuation) nasal solution (FLONASE)Indicati ons:Nasal congestion Inhale 1 [place] into affected nostril(s) once daily if needed [...] Coronary atherosclerosis of unspecified type of vessel, [place] or graft Overview (03/29/2007): PTCA 92 Unspecified [...] Department Care Team Description 02/24/2025 Nurse Triage [facility] [address] [facility] [place] [address] Marilyn Teixeira MD High Blood Pressure 12/02/2024 1:15 PM CASE MANAGER Office Visit [facility] [address] [place] [address] Marilyn Teixeira MD Diabetes 12/02/2024 Travel from Last 3 Months Immunizations Immunization Administration Dates Next Due AMB INFLUENZA IIV3 (AGE 65+ YRS) PF (Flu Clinic Only) 07/23/2018 AMB Influenza, IIV3 (Age >=3 years)(Flu Clinic Only) 08/13/2013,08/30/2010,08/12/2008 Amb Influenza, Inact (High-d ose) (Flu Clinic Only) 07/23/2015 Amb Influenza, Inactivated A IIV4 (Age 65+ Years) Preserv Free 07/23/2020 COVID-19 vaccine ([employer] 30mcg/0.3mL) PF, MDV 09/07/2021,01/06/2021,12/16/2020 Influenza A (H1N1), [...] Alive Father (Age 77) Mother (Age 64) MA Sister 1 Alive Sister 2 Sister 3 [...] on file Legal Sex Female 6:09 AM CASE MANAGER Gender Identity Not on file Sexual Orientation Not on file Obstetrics History Last Filed Vital Signs Vital Sign Reading Time Taken Comments Blood Pressure 141/84 12/02/2024 12:54 PM CASE MANAGER Pulse 87 12/02/2024 12:54 PM CASE MANAGER Temperature 36.6 C (97.8 F) 08/24/2024 11:25 AM CASE MANAGER Respiratory Rate 18 08/24/2024 11:25 AM CASE MANAGER Oxygen Saturation 97% 12/02/2024 12:54 PM CASE MANAGER Inhaled Oxygen Concentration - - Weight 68.5 kg (151 lb) 12/02/2024 12:54 PM CASE MANAGER Height 157.5 cm (5' 2) 07/23/2024 9:53 AM CDT Body Mass Index 27.62 07/23/2024 9:53 AM CDT Plan of Treatment Upcoming Encounters Date Type Department Care Team (Late st Contact Info) Description 03/03/2025 2:55 PM CDT Office Visit [facility] [address] [place] [address] Mairlyn Teixeira MD [address] [facility] [address] 06/02/2025 2:30 PM CDT Cardiac Device Check [facility] [place] [facility] [address] [place] [id number] Health Maintenance Due Date Last Done Comments [...] A1C MONITORING (POCT) Routine 12/02/2024 12:03 PM CASE MANAGER Controlled type 2 diabetes mellitus without complication, with long-term current use of insulin (HC) XR DXA BONE DENSITY 2 SITES AXIAL Routine 05/20/2019 1:53 PM CDT Osteoporosis, unspecified osteoporosis type, unspecified pathological fracture presence from Last 3 Months or Most Recently Relevant to Health Maintenance Results * (ABNORMAL) HEMOGLOBIN A1C MONITORING (POCT) (12/02/2024 12:03 PM CASE MANAGER) POC HEMOGLOBIN A1C 7.5(H) <6.0 % OF TOTAL HGB [facility] Comment: Any point of care results exhibiting inconsistency with the patient's clinical status should be repeated using a different testing method. Blood BLOOD SPECIMEN / Unknown 12/02/2024 12:03 PM CASE MANAGER 12/02/2024 12:03 PM CASE MANAGER Marilyn Teixeira MD CHEMISTRY Fi nal Result [facility] [address] [place] [address], [facility] [address] [place] [address] * (ABNORMAL) XR DXA BONE DENSITY 2 SITES AXIAL (05/20/2019 1:53 PM CDT) Anatomical Region Laterality Modality Spine, HIPS, HIPL, HIPR Other Narrative 05/26/2019 1:19 PM CDT Please see scanned document for results of this study. Marilyn Teixeira MD DEXA Fi nal Result from Last 3 Months or Most Recently Relevant to Health Maintenance Insurance [id number] [place] [address] MEDICARE [place] ONLY MEDICARE PART B HB ONLY [facility] MEDICARE PART A HB ONLY [facility] MEDICARE PPS Advance Directives * Full Code [...] Comments Code Status Discussion: Discussed Care Teams Special Events Fundraiser Relationship Specialty Start Date End Date Marilyn Teixeira MD PCP - General 06/22/09 Pascual Saul MD [address] [address] [place] [address] Cardiology Cardiovascular Disease 10/26/16
[2025-02-24 17:41] VITALS: BP 167/81; RESP 18
== END 2025-02-24 17:48 | disposition home or self-care (01) ==
LOC: ED 17:30
PROVIDERS: Emergency Provider Emergency Medicine Emergency Medical Services; PCP Family Medicine
DX: I10 Essential (primary) hypertension (principal)
CPT/HCPCS: 99282; 99283; 99284